=== PATIENT | male | born 1940 | race Caucasian/White ===

== ENCOUNTER 2018-08-15 07:26 | Observation (INO) | payer OTHER, MEDICARE ==
[2018-08-15] MEDS ORDERED: TRANEXAMIC ACID 3,000 MG/50 ML BAG IRR ONE (07:34)
[2018-08-15] MEDS ORDERED: VANCOMYCIN 1 GM VIAL ONE (07:34)
[2018-08-15] MEDS ORDERED: ceFAZolin 1 GM/5 ML SYR ONE (07:35)
[2018-08-15] MEDS ORDERED: LR 1,000 ML IV ONE (07:41)
[2018-08-15] MEDS ORDERED: DEXAMETHASONE 4 MG/ML VIAL IVP ONE (07:41)
[2018-08-15] MEDS ORDERED: GABAPENTIN 300 MG CAP PO ONE (07:41)
[2018-08-15] MEDS ORDERED: ACETAMINOPHEN 325 MG TAB PO ONE (07:41)
[2018-08-15] MEDS ORDERED: FAMOTIDINE 20 MG TAB PO ONE (07:41)
[2018-08-15] MEDS ORDERED: ONDANSETRON 4 MG/2 ML VIAL IVP ONE (07:41)
[2018-08-15] MEDS ORDERED: LIDOCAINE 1% 2 ML INJ ID PRN (07:41)
[2018-08-15] MEDS ORDERED: ceFAZolin 2 GM/DEXTROSE 100 ML IV ONE (07:41)
[2018-08-15] MEDS ORDERED: MIDAZOLAM 2 MG/2 ML VIAL IVP ONE (08:41)
--- NOTE | 2018-08-15 08:46 | PDANEPAE ---
ANE History of Present Illness DJD R Knee s/f R TKA ANE Past Medical History - Cardiovascular History Hx Hypertension: No Hx Arrhythmias: No Hx Chest Pain: No Hx Coronary Artery / Peripheral Vascular Disease: No Hx CHF / Valvular Disease: No Hx Palpitations: No - Pulmonary History Hx COPD: Yes Hx Asthma/Reactive Airway Disease: No Hx Recent Upper Respiratory Infection: No Hx Oxygen in Use at Home: No Hx Sleep Apnea: No Sleep Apnea Screening Result - Last Documented: Negative Pulmonary History Comment: THICKEN BRONCHIAL SZYMANSKI AIR PASSAGES REDUCED. PREV WENT TO [facility] NO VISITS PAST YEARS - Neurologic History Hx Cerebrovascular Accident: No Hx Seizures: No Hx Dementia: No - Endocrine History Hx Diabetes: No - Renal History Hx Renal Disorders: No - Liver History Hx Hepatic Disorders: No - Neurological & Psychiatric Hx Hx Neurological and Psychiatric Disorders: No - Cancer History Hx Cancer: No - Congenital Disorder History Hx Congenital Disorders: No - GI History Hx Gastrointestinal Disorders: Yes Gastrointestinal History Comment: MALABSORPTION IGA SECRETION ABNORMALCY. CELIAC DX. MICROSCOPIC COLITIS - Other Health History Other Health History: pernicious anemia - Chronic Pain History Chronic Pain: No - Surgical History Prior Surgeries: ANEESH CATARACT REMVL. LT ARM ORIF. RT FEMUR ORIF. BALOON FOR BACK REGION UNKNOWN. L TKA ANE Review of Systems Review of Systems: - Exercise capacity METS (RN): 4 METS ANE Patient History - Allergies Allergies/Adverse Reactions: gluten Allergy (Verified 08/10/18 12:50) - Home Medications Home medications: home medication list seen and reviewed Home Medications: Herbals/Supplements -Info Only 1 ea PO DAILY 02/17/15 [Last Taken 08/08/18] Lipase 24,000/Amylase/Protease [Creon 24 (*)] 1 cap PO TIDMEAL 02/17/15 [Last Taken 08/14/18] Budesonide [Budesonide EC] 3 mg PO Q2D 08/07/18 [Last Taken 08/14/18] Budesonide [Budesonide EC] 6 mg PO Q2D 08/07/18 [Last Taken 08/14/18] Cyanocobalamin [Vitamin B12 (*)] 1,000 mcg PO DAILY 08/07/18 [Last Taken ] - NPO status NPO Status: no food or drink >8 hours NPO Since - Liquids (Date): 08/14/18 NPO Since - Liquids (Time): 21:00 NPO Since - Solids (Date): 08/14/18 NPO Since - Solids (Time): 21:00 - Anes Hx Anes Hx: no prior problems - Smoking Hx Smoking Status: Never smoked - Alcohol Use Alcohol Use: None - Family Anes Hx Family Anes Hx: none Family Hx Anesthesia Complications: none ANE Labs/Vital Signs - Labs - CBC WBC: reviewed and okay - Vital Signs Blood Pressure: 120/64 Heart Rate: 58 Respiratory Rate: 16 O2 Sat (%): 98 Height: 177.8 cm Weight: 74.843 kg ANE Physical Exam - Airway Neck exam: FROM Mallampati Score: Class 2 Mouth exam: normal dental/mouth exam - Pulmonary Pulmonary: no respiratory distress - Cardiovascular Cardiovascular: regular rate and rhythym - ASA Status ASA Status: II ANE Anesthesia Plan Anesthesia Plan: spinal Regional Anesthesia: adductor canal FNB (+/- shafer will discuss with Dr. Waddell)
[2018-08-15] MEDS ORDERED: TRANEXAMIC ACID 1,000 MG in NS 100 ML IV ONE (09:00)
[2018-08-15] MEDS ORDERED: TRANEXAMIC ACID 3,000 MG in NS (SYRINGE) 50 ML IRR ONE (09:00)
[2018-08-15] MEDS ORDERED: POVIDONE-IODINE 20 ML in SODIUM CL IRRIG SOLUTION 500 ML IRR ONE (09:00)
[2018-08-15] MEDS ORDERED: ROPIVACAINE 0.2% 80 MG, EPINEPHrine 0.2 MG, KETOROLAC TROMETHAMINE 30 MG in SYRINGE 0 ML IU ONE (09:00)
--- NOTE | 2018-08-15 09:06 | PDHPUP ---
History & Physical Update H&P update statement: This history and physical update is based on an assessment of the patient which was completed after admission or registration (within 24 hours), but prior to the surgery/procedure. H&P update: H&P reviewed & patient examined
[2018-08-15] MEDS ORDERED: PROPOFOL/EMULSION 500 MG/50 ML BOTTLE IV ONE (09:09)
[2018-08-15] MEDS ORDERED: PROPOFOL 200 MG/20 ML VIAL ONE ×2 (10:02→10:22)
[2018-08-15] MEDS ORDERED: NALOXONE HCL 0.4 MG/ML INJ IVP PRN (10:35)
[2018-08-15] MEDS ORDERED: LR 500 ML IV PRN (10:35)
[2018-08-15] MEDS ORDERED: PROMETHAZINE HCL 25 MG/ML INJ IVP PRN ×2 (10:35→11:00)
[2018-08-15] MEDS ORDERED: ONDANSETRON 4 MG/2 ML VIAL IVP PRN ×2 (10:35→11:00)
[2018-08-15] MEDS ORDERED: fentaNYL 100 MCG/2 ML INJ IVP PRN (10:35)
[2018-08-15] MEDS ORDERED: ALBUTEROL 3 ML DEYVIAL IH PRN (10:35)
[2018-08-15] MEDS ORDERED: METOCLOPRAMIDE 10 MG/2 ML VIAL IVP PRN ×2 (10:35→11:00)
[2018-08-15] MEDS ORDERED: MEPERIDINE 25 MG/0.5 ML AMP IVP PRN (10:35)
[2018-08-15] MEDS ORDERED: DEXAMETHASONE 4 MG/ML VIAL IVP PRN (10:35)
[2018-08-15] MEDS ORDERED: oxyCODONE IR 5 MG TAB PO PRN ×2 (10:35→11:00)
[2018-08-15] MEDS ORDERED: LABETALOL HCL 5 MG/ML 20 ML MDV IVP PRN (10:35)
[2018-08-15] MEDS ORDERED: PHENYLEPHRINE HCL 100 MCG/ML SYR IVP PRN (10:35)
--- NOTE | 2018-08-15 10:50 | POSTOPPROG ---
Post Op Note Date of Operation: 08/15/18 Surgeon: Boris Waddell Relay Associate: Jackie Anesthesiologist: Dr. Stuart Ahumada Post-op Diagnosis: Right knee severe degenerative arthritis Procedure: Right total knee arthroplasty Inf/Abcess present in the surg proc area at time of surgery?: No EBL: 50-100 (Adductor canal block in PACU with indwelling catheter.)
[2018-08-15] MEDS ORDERED: EPINEPHrine 1 MG/10 ML SYR IVP ONE (10:53)
[2018-08-15] MEDS ORDERED: ROPIVACAINE HCL 150 MG/30 ML INJ ONE (10:53)
[2018-08-15] MEDS ORDERED: traMADol 50 MG TAB PO PRN (11:00)
[2018-08-15] MEDS ORDERED: PROMETHAZINE HCL 25 MG SUPPR PR PRN (11:00)
[2018-08-15] MEDS ORDERED: ONDANSETRON DISINTEGRATING 4 MG TAB PO PRN (11:00)
[2018-08-15] MEDS ORDERED: LACTULOSE 20 GM/30 ML UDCUP PO PRN (11:00)
[2018-08-15] MEDS ORDERED: NS 500 ML IV PRN (11:00)
[2018-08-15] MEDS ORDERED: diphenhydrAMINE 25 MG CAP PO PRN (11:00)
[2018-08-15] MEDS ORDERED: DIPHENOXYLATE/ATROPINE LOMOTIL 1 TAB PO PRN (11:00)
[2018-08-15] MEDS ORDERED: MAGNESIUM HYDROXIDE 30 ML UDCUP PO PRN (11:00)
[2018-08-15] MEDS ORDERED: CYCLOBENZAPRINE 10 MG TAB PO PRN (11:00)
[2018-08-15] MEDS ORDERED: POLYETHYLENE GLYCOL 3350 17 GM PKT PO PRN (11:00)
[2018-08-15] MEDS ORDERED: BISACODYL 10 MG SUPP PR PRN (11:00)
[2018-08-15] MEDS ORDERED: TEMAZEPAM 15 MG CAP PO PRN (11:00)
--- NOTE | 2018-08-15 11:31 | GOP ---
DATE OF OPERATION: 08/15/2018 SURGEON: Boris Waddell MD SPECIAL EDUCATION COORDINATOR: Juanito Draper and Aleks Rendon. ANESTHESIA: Combination of Marcaine, spinal, IV sedation, and adductor canal block. ANESTHESIOLOGIST: Dr. Stuart Ahumada. PREOPERATIVE DIAGNOSIS: Right knee severe degenerative arthritis. POSTOPERATIVE DIAGNOSIS: Right knee severe degenerative arthritis. PROCEDURE PERFORMED: Right total knee arthroplasty, cemented, Good and Nephew Journey II, posterior stabilized. FINDINGS: DESCRIPTION OF PROCEDURE: The patient was given 2 g of IV Ancef preoperatively within 60 minutes of surgery. He also received 1000 mg of IV tranexamic acid. He was placed on the operating room table and given spinal anesthesia with Marcaine by Dr. Ahumada. He was then placed supine and given IV sedat ion. A Germain catheter was not used. He wore a CHRIS stocking and SCD on the nonoperative leg. His ri t lower extremity was prepped with ChloraPrep from the upper thigh tourniquet to the tips of the to es. It was draped free using sterile sheets, stockinette, and Ioban plastic adhesive drape. The low er leg was wrapped with compressive Coban. The leg was exsanguinated with elevation and a 6-inch com pressive wrap, and pneumatic tourniquet was inflated to 250 mmHg. The World Health Organization time-out was performed to verify the correct patient identity and the c orrect surgical side and site. The [place] time-out was also performed. The TELA Bioayo leg holding device was sterilely attached to the operating room table and used throughout the procedure to help position the knee. A straight midline incision was made centered on the patella. Subcutaneous tissues were sharply divi ded and hemostasis was obtained using electrocautery. A medial subcutaneous flap was developed and t he capsule and synovium were opened in a medial parapatellar fashion. Extensive degenerative changes were present in his medial compartment and in the patellofemoral joint. The medial capsule and moshe osteum were elevated off the rim in the medial tibial plateau all the way around to the posteromedial corner. He did not require release of his medial collateral ligament. In order to improve exposure, his patella was prepared first. The original thickness of the patella was measured. Peripheral osteophytes were removed. I cut a flat surface on the back of the patella. He was sized for a 41 mm round resurfacing component. I removed enough bone from the patella such that the remaining bone plus the thickness of the patellar component recreated the original thickness of the patella. The composite thickness was 24 mm. The intramedullary alignment guide system was used to set up the distal femoral cut. The distal femu r was cut in 5 degrees of valgus. Because of a preoperative flexion contracture, and because I was u sing a posterior stabilized component, I made a +2 mm cut on the distal femur. The sizing jig was us ed to determine proper femoral sizing. I shifted the jig anteriorly 1 mm in order to accommodate a s ize 6 femoral component without notching the anterior cortex. The 5-in-1 cutting block was applied a nd the anterior and posterior condylar cuts and chamfer cuts were made. The final jig was used to re move the central portion of the distal femur to accommodate the posterior stabilized femoral componen t. I was careful to determine proper rotation by referencing off Whitesides line and other bony land doll. Each cut was checked for accuracy. The femur was sized for a size 6 posterior stabilized com ponent. Next, the tibia was prepared. The proximal tibial cut was made using the extramedullary alignment gu laverne system. The cut was made in a few degrees of posterior slope. I was careful to achieve proper v arus valgus alignment and proper rotation. The posterior compartment was cleared of meniscal remnant s. Osteophytes were removed from the back of the femoral condyles. I checked the flexion and extens ion gaps, and they were equal, balanced, and rectangular. The tibia was sized for a size 5 component . With the trial components in place, I selected a 10 mm polyethylene posterior stabilized tibial in sert. The knee came to full extension and flexed to 125 degrees. His collateral ligaments were stab le and balanced in 90 degrees of flexion and full extension. The trial patellar button was applied a nd tracking was checked. Tracking was excellent without any digital pressure. Then 40 cc of the joint anesthetic cocktail were injected into the posterior capsule, the quadriceps muscle and tendon areas, and the subcutaneous tissues along the skin edges. The surfaces were prepared for cementing. They were carefully cleaned with the pulsating lavage irri gation and thoroughly dried. The CarboJet device was used to blow dry the cancellous surfaces. A do uble batch of high viscosity methylmethacrylate cement with 2 g of powdered vancomycin added was mixe d. While it was still in a doughy state, all 3 components were cemented in place. Excess cement was removed before it hardened. The 10 mm trial tibial insert was re-tried and was the proper thickness. The actual component was in serted and locked into place. The knee was thoroughly irrigated one final time with a dilute Betadin e solution. The tourniquet was deflated and the total tourniquet time was 45 minutes. Then 50 mL this tranexamic acid solution was irrigated into the joint and left there. The vastus medialis portion of the extensor mechanism was repaired with several interrupted figure-of -eight #2 FiberWire sutures. The capsule and synovium were closed first with multiple interrupted fi [id number] 0 PDS sutures, followed by a running #2 barbed Ethicon Stratafix PDO suture. The subcu taneous tissues were closed with a running 0 barbed Ethicon Stratafix Monoderm suture. The skin was closed with a running 3-0 barbed Ethicon Stratafix Monoderm subcuticular suture. The skin was sealed with half-inch Steri-Strips. The wound was covered with a large Mepilex waterproof dressing and the knee was wrapped with Kerlix and a 6-inch compressive wrap. A long-leg CHRIS stocking and SCD were ap plied, followed by the cooling device. He wore a stocking and SCD on the opposite leg during the pro cedure. The sacral Mepilex dressing was applied. I used a size 6 Good and Nephew cemented Oxinium posterior stabilized femoral component, size 5 ceme nted tibial base plate, 10 mm posterior stabilized tibial insert, and a 41 mm cemented round all-poly ethylene resurfacing patellar component. The estimated blood loss following deflation of the tourniquet was about 100 mL. The sponge and needle count were correct on 2 occasions. He was awakened from anesthesia, transferred to his [facility], and taken to PACU in satisfactor y condition. There were no recognized intraoperative complications. In the PACU, for additional postoperative pain control, Dr. Stuart Ahumada performed an adductor canal bl ock with an indwelling catheter. Juanito Draper and Aleks Rendon acted as surgical assistants. Their assistance was a medical necess ity for safe completion of the procedure. /[id number]/MODL
--- NOTE | 2018-08-15 11:40 | POSTANESTH ---
Post Anesthetic Evaluation Cardiovascular Status: Normal, Stable Respiratory Status: Normal, Stable Level of Consciousness/Mental Status: Can Participate in Eval Pain Control: Adequate, Prn Tx Ordered Nausea/Vomiting Control: Adequate, Prn Tx Ordered Complications Possibly Related to Anesthesia: None Noted
[2018-08-15] MEDS: ACETAMINOPHEN 325 MG TAB PO SCH ×2 (12:53→17:57)
[2018-08-15] MEDS: KETOROLAC 15 MG/1 ML SDV IVP SCH ×2 (12:54→17:56)
[2018-08-15] MEDS: LIPASE 24,000/AMYLASE/PROTEASE (CREON) 1 CAP PO SCH ×2 (13:08→17:57)
[2018-08-15] MEDS ORDERED: BUDESONIDE 3 MG EC CAP PO SCH (14:00)
[2018-08-15] MEDS: guaiFENesin 600 MG TAB.ER PO SCH ×2 (14:26→21:11)
[2018-08-15] MEDS: LR 1,000 ML IV SCH ×2 (14:29→23:21)
[2018-08-15] MEDS: ceFAZolin 2 GM/DEXTROSE 100 ML IV SCH (16:31)
[2018-08-15] MEDS: SENNOSIDES/DOCUSATE SODIUM TAB PO SCH (21:12)
[2018-08-15] MEDS: ASPIRIN 325 MG TAB PO SCH (21:12)
[2018-08-15] MEDS: FAMOTIDINE 20 MG TAB PO SCH (21:13)
[2018-08-16] MEDS: ceFAZolin 2 GM/DEXTROSE 100 ML IV SCH (00:54)
[2018-08-16] MEDS: ACETAMINOPHEN 325 MG TAB PO SCH ×3 (00:54→11:20)
[2018-08-16] MEDS: KETOROLAC 15 MG/1 ML SDV IVP SCH ×2 (00:55→07:52)
--- NOTE | 2018-08-16 07:30 | SOAPPROG ---
SOAP Progress Note Assessment/Plan: Assessment: Afebrile. Awake and alert. Not much pain so far. He has been up and walking in the marks. His dressing is dry. Postop H&H are good. Films look good. Plan: Physical therapy today. Standing leg alignment film before discharge. Discharge today after cleared by physical therapy. 08/16/18 07:29 Objective: Vital Signs Temp Pulse Resp BP Pulse Ox 36.9 C 63 15 106/47 L 91 L 08/16/18 04:00 08/16/18 04:00 08/16/18 04:00 08/16/18 04:00 08/16/18 04:00 Laboratory Results 08/16/18 05:30 08/15/18 08/16/18 08/17/18 05:59 05:59 05:59 Intake Total 5104 Output Total 1425 Balance 3679 ICD10 Worksheet Patient Problems: Problems Problem Status Onset Osteoarthritis of right knee Acute Primary osteoarthritis of left knee Acute
[2018-08-16] MEDS ORDERED: FERROUS SULFATE 325 MG TAB PO SCH (08:00)
[2018-08-16] MEDS: LIPASE 24,000/AMYLASE/PROTEASE (CREON) 1 CAP PO SCH (08:15)
--- NOTE | 2018-08-16 08:44 | GDS ---
ADMISSION DIAGNOSIS: Right knee severe degenerative arthritis. DISCHARGE DIAGNOSIS: Right knee severe degenerative arthritis. OPERATION PERFORMED: August 15, 2018, a right total knee arthroplasty. POSTOPERATIVE COMPLICATIONS: None. CONDITION ON DISCHARGE: Improved. HOSPITAL COURSE: The patient was admitted to the hospital the morning of surgery. His admission CBC was normal. The same day, under a combination of Marcaine, spinal, IV sedation, and adductor canal block, he underwent a right total knee arthroplasty. Postoperatively, he was able to void spontaneously. He was treated with multimodal DVT prophylaxis, including aspirin. On the first postoperative day, his hemoglobin and hematocrit were 10.5 and 32.4. He was seen by Physical Therapy and made good progress with ambulation, stairs, and knee range of m otion. By the time of discharge, he was afebrile and was independent walking with a walker. DISPOSITION: The patient IS discharged to his home. He may progress to full weightbearing on the ri ght as tolerated. He will have home physical therapy for 2 weeks and then have outpatient physical t herapy in my office. CHRIS stockings for 1 week. Continue aspirin 325 mg daily for 21 days. He has p rescriptions for Celebrex, oxycodone, and tramadol for pain control. I will see him back in the off ce on August 30, 2018. If there any problems, he is to call me at the office. He does not have a p [facility] doctor. /[id number]/MODL
[2018-08-16] MEDS ORDERED: BUDESONIDE 3 MG EC CAP PO SCH (09:00)
[2018-08-16] MEDS: guaiFENesin 600 MG TAB.ER PO SCH (09:46)
[2018-08-16] MEDS: ASPIRIN 325 MG TAB PO SCH (09:46)
[2018-08-16] MEDS: SENNOSIDES/DOCUSATE SODIUM TAB PO SCH (09:46)
[2018-08-16] MEDS: FAMOTIDINE 20 MG TAB PO SCH (09:47)
--- NOTE | 2018-08-16 10:18 | PDIAF ---
- Diagnosis Diagnosis: s/p TKA Code Status: Full Code - Medication Management Discharge Medications: electronically signed and located in the Home Medication List. PICC Care - Routine: N/A - Orders Services needed: Home Care, Physical Therapy Home Care Face to Face: I certify that this patient was under my care and that I had the required [id number] encounter meeting the encounter requirements on the discharge day. My findings support the fact that the patient is homebound as defined in Home Care Face to Face Continued: CMS Chapter 7 Medicare Benefits Manual 30.1.1 , The condition of the patient is such that there exists a normal inability to leave home and consequently, leaving home would require a considerable and taxing effort. Isolation Type: None Diet Recommendation: no restrictions on diet Diet Texture: Regular Texture Diet Germain: Not applicable Humza Stockings Discontinue Date: 1 week Wound Care Instructions: keep clean and dry. You may shower. Activity/Weight Bearing Restrictions: as tolerated. Equipment: Zero knee while in bed as tolerated. - Follow Up Care Current Providers and Referrals: NONE *PRIMARY CARE P,. [Primary Care Provider] - Boris Waddell MD [Medical Doctor] - 08/30/18
--- NOTE | 2018-08-16 10:52 | ASMTLACE ---
LACE Length of stay for Answers: 2 days current admission Acuity / Level of Answers: No Care: Did the patient have an inpatient admission? Comorbidities - select Answers: Chronic pulmonary disease all that apply # of Emergency department Answers: 0 visits in the last 6 months Score: 4 Date Signed: 08/16/2018 10:52 AM Electronically Signed By:MYA Sandhu
--- NOTE | 2018-08-16 11:03 | ASMTCMCOM ---
CM Note CM Note Notes: Pt had planned TKA, resides with spouse. PT and MD rec HHC and pt amenable. Pt [facility], [facility] d/c address/phone verified. Orders to be obtained via [employer]. Date Signed: 08/16/2018 11:02 AM Electronically Signed By:MYA Sandhu
[2018-08-16] MEDS ORDERED: ROPIVACAINE HCL 150 MG/30 ML INJ ONE (11:36)
[2018-08-16] MEDS ORDERED: LIPID EMULSION 20% 100 ML IV PRN (11:41)
[2018-08-16 14:31] VITALS: BP 128/60
--- NOTE | 2018-08-16 15:27 | ASDISCHSUM ---
Discharge Information Plan Status:Home with Home Health Medically Cleared to Leave: Discharge Date:08/16/2018 03:25 PM CM D/C Disposition: ADT D/C Disposition:Home Health Service Projected Discharge Date:08/16/2018 11:00 AM Transportation at D/C: Discharge Delay Reason: Follow-Up Date:08/16/2018 11:00 AM Discharge Slot: Final Diagnosis: Placement Information Referral Type:*Home Health Care Services Referral ID:[id number] Provider Name:[facility] Address 1:[address] Address 2: City:[place] Selection Factors: State:[place] Patient Contact Information Contact Name:ISRAEL Relationship:Life Partner Address:[address] City:[place] Alternate Phone: State/Zip Code:[place] [address] Email: Financial Information Financial Class:Medicare Primary Plan Desc:MEDICARE OUTPATIENT Primary Plan Number:[id number] Secondary Plan Desc:[employer]/MDR SUPPLEMENT Secondary Plan Number:[id number] Assessment Information LACE LACE Length of stay for Answers: 2 days current admission Acuity / Level of Answers: No Care: Did the patient have an inpatient admission? Comorbidities - select Answers: Chronic pulmonary disease all that apply # of Emergency department Answers: 0 visits in the last 6 months Score: 4 Date Signed: 08/16/2018 10:52 AM Electronically Signed By:MYA Sandhu [facility] CM Progress Note CM Note CM Note Notes: Pt had planned TKA, resides with spouse. PT and MD rec HHC and pt amenable. Pt chooses [facility], referral sent in [employer] and [facility] alerted. Pt d/c address/phone verified. Orders to be obtained via [employer]. Date Signed: 08/16/2018 11:02 AM Electronically Signed By:MYA Sandhu Intervention Information
--- NOTE | 2018-08-17 07:46 | PDPAINCON ---
Pain Management Consultation Patient referred by : Nadira - Subjective Pain at rest (/10): 0 Pain with activity (/10): 2 Pain is: under control Activity: able to ambulate - Objective Catheter site: clean, dry, intact, no erythema/edema/exudate Sensory and motor exam: consistent with block - Assessment/Plan Assessment/Plan: pain well-controlled, continue current mgmt (Bolusing catheter and removal prior to discharge)
== END 2018-08-16 15:25 | disposition home health service (06) ==
LOC: F3N 07:26
PROVIDERS: ADMIT Orthopaedic Surgery; ATTEND Orthopaedic Surgery
PROC: 0SRD069 Replacement of Left Knee Joint with Oxidized Zirconium on Polyethylene Synthetic Substitute, Cemented, Open Approach (ICD-10-PCS; principal; 2018-08-15 09:00)
DX: M17.11 Unilateral primary osteoarthritis, right knee (principal); K90.0 Celiac disease; Z96.651 Presence of right artificial knee joint
CPT/HCPCS: 27447; 73560; 77073; 88311; 97116; 97161; 97165; C1713; C1776; J0171; J0690; J1100; J1885; J2250; J2405; J2704; J2795; J3370